=== PATIENT | female | born 1950 | race Caucasian/White ===

== ENCOUNTER 2021-12-05 14:56 | Inpatient (IN) ==
[2021-12-05] MEDS ORDERED: Sennosides/Docusate Sodium TABLET PO PRN (16:54)
[2021-12-05] MEDS: *HR* HYDROcodone/Acet 5/325 mg TABLET PO PRN (18:14)
[2021-12-05] MEDS: Gabapentin 300 MG CAPSULE PO SCH (22:32)
[2021-12-05] MEDS: cefTRIAXone 2,000 MG in 0.9 % Sodium Chloride Mini Bag 100 ML IVPB SCH (22:56)
[2021-12-06] MEDS: Famotidine 20 MG TABLET PO SCH (05:34)
[2021-12-06] MEDS: *HR* HYDROcodone/Acet 5/325 mg TABLET PO PRN ×3 (05:34→22:31)
[2021-12-06 05:59] LABS: Basophils % 0.6 %; Eosinophils # 0.1 K/mcL (0.0-0.6); Eosinophils % 1.8 %; Hematocrit 23.4 % (35.3-44.9); Hemoglobin 7.4 g/dL (11.5-15.4); Lymphocytes # 1.3 K/mcL (0.6-4.6); Lymphocytes % 17.3 %; Mean Corpuscular HGB Conc 31.6 g/dL (31.6-35.5); Mean Corpuscular Hemoglobin 29.8 pg (28.0-33.3); Mean Corpuscular Volume 94.4 fL (83.0-100.0); Mean Platelet Volume 8.8 fL (9.4-12.4); Monocytes # 0.7 K/mcL (0.0-1.3); Monocytes % 9.5 %; Neutrophils # 5.1 K/mcL (1.6-8.9); Platelet Count 467 K/mcL (140-400); Red Blood Count 2.48 M/mcL (3.82-4.97); Red Cell Distribution Width 14.6 % (11.5-14.5); Segmented Neutrophils % 69.8 %; White Blood Count 7.3 K/mcL (4.3-11.1)
[2021-12-06 06:13] LABS: Potassium 3.9 mEq/L (3.5-5.1)
[2021-12-06] MEDS ORDERED: CEFTRIAXONE SODIUM 2 GM IV SCH (09:00)
[2021-12-06] MEDS: Aspirin Enteric Coated 81 MG Tablet PO SCH (10:53)
[2021-12-06] MEDS: Gabapentin 300 MG CAPSULE PO SCH ×3 (10:53→22:39)
[2021-12-06] MEDS: Loratadine 10 MG TABLET PO SCH (10:53)
[2021-12-06] MEDS: Multivit/Ca/Min/Fe/FA 1 TAB TABLET PO SCH (10:54)
[2021-12-06] MEDS: cefTRIAXone 2,000 MG in 0.9 % Sodium Chloride Mini Bag 100 ML IVPB SCH (22:33)
[2021-12-07] MEDS: Famotidine 20 MG TABLET PO SCH (06:25)
[2021-12-07] MEDS: *HR* HYDROcodone/Acet 5/325 mg TABLET PO PRN ×3 (06:33→21:41)
[2021-12-07] MEDS: Aspirin Enteric Coated 81 MG Tablet PO SCH (10:25)
[2021-12-07] MEDS: Multivit/Ca/Min/Fe/FA 1 TAB TABLET PO SCH (10:25)
[2021-12-07] MEDS: Loratadine 10 MG TABLET PO SCH (10:26)
[2021-12-07] MEDS: Gabapentin 300 MG CAPSULE PO SCH ×3 (10:26→21:17)
[2021-12-07] MEDS: cefTRIAXone 2,000 MG in 0.9 % Sodium Chloride Mini Bag 100 ML IVPB SCH (21:11)
[2021-12-08] MEDS: Famotidine 20 MG TABLET PO SCH (05:20)
[2021-12-08] MEDS: Loratadine 10 MG TABLET PO SCH (10:57)
[2021-12-08] MEDS: Gabapentin 300 MG CAPSULE PO SCH ×3 (10:57→21:39)
[2021-12-08] MEDS: Multivit/Ca/Min/Fe/FA 1 TAB TABLET PO SCH (10:57)
[2021-12-08] MEDS: *HR* HYDROcodone/Acet 5/325 mg TABLET PO PRN ×2 (10:57→17:19)
[2021-12-08] MEDS: Aspirin Enteric Coated 81 MG Tablet PO SCH (10:57)
[2021-12-08] MEDS: cefTRIAXone 2,000 MG in 0.9 % Sodium Chloride Mini Bag 100 ML IVPB SCH (21:35)
[2021-12-09] MEDS: Famotidine 20 MG TABLET PO SCH (06:39)
[2021-12-09] MEDS: *HR* HYDROcodone/Acet 5/325 mg TABLET PO PRN ×4 (06:39→23:46)
[2021-12-09 08:23] LABS: Basophils % 0.4 %; Eosinophils # 0.2 K/mcL (0.0-0.6); Eosinophils % 3.4 %; Hematocrit 23.1 % (35.3-44.9); Hemoglobin 7.2 g/dL (11.5-15.4); Immature Granulocytes % 0.7 % (0-4); Lymphocytes # 1.4 K/mcL (0.6-4.6); Lymphocytes % 19.5 %; Mean Corpuscular HGB Conc 31.2 g/dL (31.6-35.5); Mean Corpuscular Hemoglobin 29.8 pg (28.0-33.3); Mean Corpuscular Volume 95.5 fL (83.0-100.0); Mean Platelet Volume 8.3 fL (9.4-12.4); Monocytes # 0.7 K/mcL (0.0-1.3); Monocytes % 9.9 %; Neutrophils # 4.7 K/mcL (1.6-8.9); Platelet Count 445 K/mcL (140-400); Red Blood Count 2.42 M/mcL (3.82-4.97); Red Cell Distribution Width 14.6 % (11.5-14.5); Segmented Neutrophils % 66.1 %
[2021-12-09 08:39] LABS: Calcium 8.2 mg/dL (8.6-10.3)
[2021-12-09] MEDS: Multivit/Ca/Min/Fe/FA 1 TAB TABLET PO SCH (10:44)
[2021-12-09] MEDS: Aspirin Enteric Coated 81 MG Tablet PO SCH (10:44)
[2021-12-09] MEDS: Gabapentin 300 MG CAPSULE PO SCH ×3 (10:44→23:25)
[2021-12-09] MEDS: Loratadine 10 MG TABLET PO SCH (10:44)
[2021-12-09] MEDS: cefTRIAXone 2,000 MG in 0.9 % Sodium Chloride Mini Bag 100 ML IVPB SCH (23:47)
[2021-12-10] MEDS: Famotidine 20 MG TABLET PO SCH (05:40)
[2021-12-10 08:06] LABS: Basophils # 0.1 K/mcL (0.0-0.2); Basophils % 0.7 %; Eosinophils # 0.3 K/mcL (0.0-0.6); Eosinophils % 3.7 %; Hematocrit 22.7 % (35.3-44.9); Hemoglobin 7.2 g/dL (11.5-15.4); Lymphocytes # 1.1 K/mcL (0.6-4.6); Lymphocytes % 16.3 %; Mean Corpuscular HGB Conc 31.7 g/dL (31.6-35.5); Mean Corpuscular Hemoglobin 30.5 pg (28.0-33.3); Mean Corpuscular Volume 96.2 fL (83.0-100.0); Mean Platelet Volume 8.5 fL (9.4-12.4); Monocytes # 0.6 K/mcL (0.0-1.3); Monocytes % 8.7 %; Neutrophils # 4.9 K/mcL (1.6-8.9); Platelet Count 497 K/mcL (140-400); Red Blood Count 2.36 M/mcL (3.82-4.97); Red Cell Distribution Width 14.6 % (11.5-14.5); Segmented Neutrophils % 69.6 %
[2021-12-10] MEDS: Gabapentin 300 MG CAPSULE PO SCH ×3 (08:30→20:46)
[2021-12-10] MEDS: Multivit/Ca/Min/Fe/FA 1 TAB TABLET PO SCH (08:30)
[2021-12-10] MEDS: Aspirin Enteric Coated 81 MG Tablet PO SCH (08:31)
[2021-12-10] MEDS: Loratadine 10 MG TABLET PO SCH (08:31)
[2021-12-10] MEDS: *HR* HYDROcodone/Acet 5/325 mg TABLET PO PRN ×2 (08:34→16:19)
[2021-12-10 08:35] LABS: Calcium 8.1 mg/dL (8.6-10.3); Magnesium 1.5 mg/dL (1.6-2.6); Potassium 3.6 mEq/L (3.5-5.1)
[2021-12-10] MEDS: cefTRIAXone 2,000 MG in 0.9 % Sodium Chloride Mini Bag 100 ML IVPB SCH (20:41)
[2021-12-11] MEDS: *HR* HYDROcodone/Acet 5/325 mg TABLET PO PRN ×2 (08:12→20:29)
[2021-12-11] MEDS: Loratadine 10 MG TABLET PO SCH (08:12)
[2021-12-11] MEDS: Multivit/Ca/Min/Fe/FA 1 TAB TABLET PO SCH (08:12)
[2021-12-11] MEDS: Gabapentin 300 MG CAPSULE PO SCH ×3 (08:12→20:29)
[2021-12-11] MEDS: Aspirin Enteric Coated 81 MG Tablet PO SCH (08:12)
[2021-12-11] MEDS: Famotidine 20 MG TABLET PO SCH (08:14)
[2021-12-11] MEDS: cefTRIAXone 2,000 MG in 0.9 % Sodium Chloride Mini Bag 100 ML IVPB SCH (20:30)
[2021-12-12] MEDS: Famotidine 20 MG TABLET PO SCH (06:26)
[2021-12-12] MEDS: *HR* HYDROcodone/Acet 5/325 mg TABLET PO PRN (06:28)
[2021-12-12 07:31] LABS: Basophils % 0.4 %; Eosinophils # 0.3 K/mcL (0.0-0.6); Eosinophils % 4.8 %; Hemoglobin 6.7 g/dL (11.5-15.4); Immature Granulocytes % 0.7 % (0-4); Lymphocytes # 1.4 K/mcL (0.6-4.6); Lymphocytes % 20.8 %; Mean Corpuscular HGB Conc 31.9 g/dL (31.6-35.5); Mean Corpuscular Volume 94.2 fL (83.0-100.0); Mean Platelet Volume 8.1 fL (9.4-12.4); Monocytes # 0.6 K/mcL (0.0-1.3); Neutrophils # 4.4 K/mcL (1.6-8.9); Platelet Count 404 K/mcL (140-400); Red Blood Count 2.23 M/mcL (3.82-4.97); Red Cell Distribution Width 14.6 % (11.5-14.5); Segmented Neutrophils % 64.3 %; White Blood Count 6.9 K/mcL (4.3-11.1)
[2021-12-12 07:46] LABS: Calcium 8.1 mg/dL (8.6-10.3); Potassium 3.6 mEq/L (3.5-5.1)
[2021-12-12] MEDS: Multivit/Ca/Min/Fe/FA 1 TAB TABLET PO SCH (09:43)
[2021-12-12] MEDS: Loratadine 10 MG TABLET PO SCH (09:43)
[2021-12-12] MEDS: Gabapentin 300 MG CAPSULE PO SCH ×3 (09:43→21:14)
[2021-12-12] MEDS: Aspirin Enteric Coated 81 MG Tablet PO SCH (09:43)
[2021-12-12 14:27] LABS: Hematocrit 23.5 % (35.3-44.9); Hemoglobin 7.4 g/dL (11.5-15.4)
[2021-12-12] MEDS: cefTRIAXone 2,000 MG in 0.9 % Sodium Chloride Mini Bag 100 ML IVPB SCH (21:14)
[2021-12-13] MEDS: Famotidine 20 MG TABLET PO SCH (05:43)
[2021-12-13] MEDS: Aspirin Enteric Coated 81 MG Tablet PO SCH (08:40)
[2021-12-13] MEDS: Loratadine 10 MG TABLET PO SCH (08:40)
[2021-12-13] MEDS: Multivit/Ca/Min/Fe/FA 1 TAB TABLET PO SCH (08:40)
[2021-12-13] MEDS: Gabapentin 300 MG CAPSULE PO SCH ×3 (08:40→21:13)
[2021-12-13] MEDS: cefTRIAXone 2,000 MG in 0.9 % Sodium Chloride Mini Bag 100 ML IVPB SCH (21:12)
[2021-12-14] MEDS: Famotidine 20 MG TABLET PO SCH (05:23)
[2021-12-14 06:32] LABS: Hematocrit 21.7 % (35.3-44.9); Hemoglobin 6.9 g/dL (11.5-15.4); Mean Corpuscular HGB Conc 31.8 g/dL (31.6-35.5); Mean Corpuscular Hemoglobin 29.9 pg (28.0-33.3); Mean Corpuscular Volume 93.9 fL (83.0-100.0); Mean Platelet Volume 8.8 fL (9.4-12.4); Platelet Count 434 K/mcL (140-400); Red Blood Count 2.31 M/mcL (3.82-4.97); Red Cell Distribution Width 14.8 % (11.5-14.5)
[2021-12-14 09:47] LABS: Hematocrit 22.6 % (35.3-44.9); Hemoglobin 7.1 g/dL (11.5-15.4)
[2021-12-14] MEDS: Multivit/Ca/Min/Fe/FA 1 TAB TABLET PO SCH (10:38)
[2021-12-14] MEDS: Loratadine 10 MG TABLET PO SCH (10:39)
[2021-12-14] MEDS: Aspirin Enteric Coated 81 MG Tablet PO SCH (10:39)
[2021-12-14] MEDS: Gabapentin 300 MG CAPSULE PO SCH ×3 (10:40→20:21)
[2021-12-14] MEDS ORDERED: 0.9 % Sodium Chloride 250 ML IVC SCH (10:45)
[2021-12-14 17:50] LABS: Hematocrit 27.2 % (35.3-44.9); Hemoglobin 8.7 g/dL (11.5-15.4)
[2021-12-14 20:02] LABS: Hematocrit 25.3 % (35.3-44.9); Hemoglobin 8.2 g/dL (11.5-15.4)
[2021-12-14] MEDS: cefTRIAXone 2,000 MG in 0.9 % Sodium Chloride Mini Bag 100 ML IVPB SCH (20:22)
[2021-12-15] MEDS: Famotidine 20 MG TABLET PO SCH (06:09)
[2021-12-15] MEDS: Multivit/Ca/Min/Fe/FA 1 TAB TABLET PO SCH (08:52)
[2021-12-15] MEDS: Aspirin Enteric Coated 81 MG Tablet PO SCH (08:52)
[2021-12-15] MEDS: Gabapentin 300 MG CAPSULE PO SCH ×3 (08:53→20:42)
[2021-12-15] MEDS: Loratadine 10 MG TABLET PO SCH (08:53)
[2021-12-15] MEDS: cefTRIAXone 2,000 MG in 0.9 % Sodium Chloride Mini Bag 100 ML IVPB SCH (20:42)
[2021-12-16] MEDS: Famotidine 20 MG TABLET PO SCH (05:53)
[2021-12-16] MEDS: Loratadine 10 MG TABLET PO SCH (07:57)
[2021-12-16] MEDS: Aspirin Enteric Coated 81 MG Tablet PO SCH (07:57)
[2021-12-16] MEDS: Gabapentin 300 MG CAPSULE PO SCH ×3 (07:57→20:44)
[2021-12-16] MEDS: Multivit/Ca/Min/Fe/FA 1 TAB TABLET PO SCH (07:57)
[2021-12-16 08:50] LABS: Hematocrit 28.2 % (35.3-44.9); Mean Corpuscular HGB Conc 31.9 g/dL (31.6-35.5); Mean Corpuscular Hemoglobin 30.3 pg (28.0-33.3); Mean Corpuscular Volume 94.9 fL (83.0-100.0); Mean Platelet Volume 8.5 fL (9.4-12.4); Platelet Count 427 K/mcL (140-400); Red Blood Count 2.97 M/mcL (3.82-4.97); Red Cell Distribution Width 14.6 % (11.5-14.5)
[2021-12-16] MEDS: cefTRIAXone 2,000 MG in 0.9 % Sodium Chloride Mini Bag 100 ML IVPB SCH (20:44)
[2021-12-17] MEDS: Famotidine 20 MG TABLET PO SCH (05:39)
[2021-12-17 07:39] LABS: Basophils # 0.1 K/mcL (0.0-0.2); Basophils % 0.8 %; Eosinophils # 0.2 K/mcL (0.0-0.6); Eosinophils % 3.1 %; Hematocrit 25.5 % (35.3-44.9); Hemoglobin 8.3 g/dL (11.5-15.4); Immature Granulocytes % 0.5 % (0-4); Lymphocytes # 1.5 K/mcL (0.6-4.6); Lymphocytes % 23.5 %; Mean Corpuscular HGB Conc 32.5 g/dL (31.6-35.5); Mean Corpuscular Hemoglobin 30.5 pg (28.0-33.3); Mean Corpuscular Volume 93.8 fL (83.0-100.0); Mean Platelet Volume 8.8 fL (9.4-12.4); Monocytes # 0.6 K/mcL (0.0-1.3); Monocytes % 9.6 %; Platelet Count 393 K/mcL (140-400); Red Blood Count 2.72 M/mcL (3.82-4.97); Red Cell Distribution Width 14.7 % (11.5-14.5); Segmented Neutrophils % 62.5 %; White Blood Count 6.4 K/mcL (4.3-11.1)
[2021-12-17 07:50] LABS: BUN/Creatinine Ratio 7 (6-26); Blood Urea Nitrogen 5 mg/dL (8-23); Calcium 8.3 mg/dL (8.6-10.3); Carbon Dioxide 32 mEq/L (23-29); Chloride 98 mEq/L (98-107); Glucose 87 mg/dL (70-105); Osmolality,Calculated 279 (280-300); Potassium 3.6 mEq/L (3.5-5.1); Sodium 136 mEq/L (136-145)
[2021-12-17] MEDS: Gabapentin 300 MG CAPSULE PO SCH ×3 (09:58→20:31)
[2021-12-17] MEDS: Multivit/Ca/Min/Fe/FA 1 TAB TABLET PO SCH (09:58)
[2021-12-17] MEDS: Loratadine 10 MG TABLET PO SCH (09:58)
[2021-12-17] MEDS: Aspirin Enteric Coated 81 MG Tablet PO SCH (09:59)
[2021-12-17] MEDS: cefTRIAXone 2,000 MG in 0.9 % Sodium Chloride Mini Bag 100 ML IVPB SCH (20:33)
[2021-12-18] MEDS: Famotidine 20 MG TABLET PO SCH (05:39)
[2021-12-18] MEDS: Gabapentin 300 MG CAPSULE PO SCH ×3 (09:40→20:22)
[2021-12-18] MEDS: Multivit/Ca/Min/Fe/FA 1 TAB TABLET PO SCH (09:40)
[2021-12-18] MEDS: Aspirin Enteric Coated 81 MG Tablet PO SCH (09:40)
[2021-12-18] MEDS: Loratadine 10 MG TABLET PO SCH (09:40)
[2021-12-18] MEDS: cefTRIAXone 2,000 MG in 0.9 % Sodium Chloride Mini Bag 100 ML IVPB SCH (20:21)
[2021-12-19] MEDS: Famotidine 20 MG TABLET PO SCH (05:47)
[2021-12-19] MEDS: Multivit/Ca/Min/Fe/FA 1 TAB TABLET PO SCH (08:41)
[2021-12-19] MEDS: Aspirin Enteric Coated 81 MG Tablet PO SCH (08:41)
[2021-12-19] MEDS: Gabapentin 300 MG CAPSULE PO SCH ×3 (08:41→20:18)
[2021-12-19] MEDS: Loratadine 10 MG TABLET PO SCH (08:41)
[2021-12-19 08:46] LABS: Basophils # 0.1 K/mcL (0.0-0.2); Basophils % 1.2 %; Eosinophils # 0.2 K/mcL (0.0-0.6); Eosinophils % 3.4 %; Hematocrit 26.3 % (35.3-44.9); Hemoglobin 8.3 g/dL (11.5-15.4); Immature Granulocytes % 0.5 % (0-4); Lymphocytes # 1.7 K/mcL (0.6-4.6); Lymphocytes % 30.3 %; Mean Corpuscular HGB Conc 31.6 g/dL (31.6-35.5); Mean Corpuscular Hemoglobin 29.6 pg (28.0-33.3); Mean Corpuscular Volume 93.9 fL (83.0-100.0); Mean Platelet Volume 9.2 fL (9.4-12.4); Monocytes # 0.7 K/mcL (0.0-1.3); Monocytes % 12.7 %; Neutrophils # 2.9 K/mcL (1.6-8.9); Platelet Count 374 K/mcL (140-400); Segmented Neutrophils % 51.9 %; White Blood Count 5.6 K/mcL (4.3-11.1)
[2021-12-19 09:02] LABS: BUN/Creatinine Ratio 8 (6-26); Blood Urea Nitrogen 6 mg/dL (8-23); Calcium 8.6 mg/dL (8.6-10.3); Carbon Dioxide 32 mEq/L (23-29); Chloride 98 mEq/L (98-107); Glucose 82 mg/dL (70-105); Osmolality,Calculated 279 (280-300); Potassium 3.6 mEq/L (3.5-5.1); Sodium 136 mEq/L (136-145)
[2021-12-19] MEDS: cefTRIAXone 2,000 MG in 0.9 % Sodium Chloride Mini Bag 100 ML IVPB SCH (20:17)
[2021-12-20] MEDS: Famotidine 20 MG TABLET PO SCH (06:06)
[2021-12-20 07:06] VITALS: BP 151/75; PULSE 82; RESP 18; TEMP 98.1; O2SAT 98
[2021-12-20] MEDS: Gabapentin 300 MG CAPSULE PO SCH (08:59)
[2021-12-20] MEDS: Multivit/Ca/Min/Fe/FA 1 TAB TABLET PO SCH (08:59)
[2021-12-20] MEDS: Aspirin Enteric Coated 81 MG Tablet PO SCH (09:00)
[2021-12-20] MEDS: Loratadine 10 MG TABLET PO SCH (09:00)
[2021-12-20] MEDS ORDERED: *HR* Heparin 5,000 UNIT/ML VIAL SQ SCH (18:00)
== END 2021-12-20 18:00 | disposition home or self-care (01) | DRG 178 ==
LOC: SUATTDRO 16:32 → INPPIK 16:32
PROVIDERS: ADMIT Internal Medicine; ATTEND Nurse Practitioner